=== PATIENT | male | born 1955 | race Caucasian/White ===

== ENCOUNTER 2022-04-05 13:16 | Outpatient (CLI) | payer MEDICARE, BC | END 2022-04-05 13:17 | disposition home or self-care (01) | LOC: BICMAMMO 13:16 | PROVIDERS: ATTEND Family Medicine | DX: M81.0 Age-related osteoporosis without current pathological fracture (principal); M85.851 Other specified disorders of bone density and structure, right thigh; M85.852 Other specified disorders of bone density and structure, left thigh | CPT/HCPCS: 77080 ==

== ENCOUNTER 2023-07-29 07:25 | Day surgery (SDC) | payer MEDICARE, BC ==
[2023-07-21 14:50] VITALS: BMI 31.6
[2023-07-21 15:14] LABS: Hematocrit 47.2 % (38.8-50.0); Hemoglobin 15.1 g/dL (13.5-17.5); Mean Corpuscular Hemoglobin 30.8 pg (27.0-33.0); Mean Corpuscular Volume 96.3 fl (81.2-95.1); Mean Platelet Volume 10.9 fl (7.4-10.4); Platelet Count 218 10x3/uL (150-450); White Blood Cell (WBC) Count 6.2 10x3/uL (3.5-10.5)
[2023-07-21 15:31] LABS: Prothrombin Time 10.7 sec (9.5-12.1)
[2023-07-21 15:52] LABS: Anion Gap 15 mmol/L (10-20); BUN (Urea Nitrogen) 16 mg/dL (8.4-25.7); Calc. Creatinine Clearance 96 mL/min (70-130); Calcium 8.8 mg/dL (7.8-10.44); Carbon Dioxide 24 mmol/L (23-31); Chloride 106 mmol/L (98-107); Estimated GFR 71; Glucose 83 mg/dL (80-115); Potassium 4.6 mmol/L (3.5-5.1); Sodium 140 mmol/L (136-145)
[2023-07-29] MEDS ORDERED: Heparin 25,000 units/D5W 500 ML ONE (08:03)
[2023-07-29] MEDS ORDERED: Heparin 10,000 UNITS/ 10 ML VIAL ONE (08:03)
[2023-07-29] MEDS ORDERED: fentaNYL 50 mcg/mL 1 mL Vial ONE (11:00)
[2023-07-29] MEDS ORDERED: Ondansetron PF 4 MG/2 ML Vial ONE (11:03)
[2023-07-29] MEDS ORDERED: PROPOFOL 200 MG/20 ML VIAL ONE (11:03)
[2023-07-29] MEDS ORDERED: Dexamethasone 20 MG/5 ML VIAL ONE (11:03)
[2023-07-29] MEDS ORDERED: PHENYLEPHRINE-NS 100 MCG/ML 10 ML SYRINGE ONE ×2 (11:03→14:32)
[2023-07-29] MEDS ORDERED: Lidocaine 1% PF 5 ML VIAL ONE (11:03)
[2023-07-29] MEDS ORDERED: Rocuronium Bromide 10 MG/ML (10ML VIAL) ONE (11:03)
[2023-07-29] MEDS ORDERED: SUGAMMADEX SODIUM 200 MG/2 ML VIAL ONE (12:27)
[2023-07-29] MEDS ORDERED: Isoproterenol 0.2 MG/1 ML AMP ONE (13:02)
[2023-07-29] MEDS ORDERED: Protamine Sulfate 50 MG/5 ML VIAL ONE (13:32)
[2023-07-29] MEDS ORDERED: Acetaminophen 325 MG TAB ONE (15:21)
== END 2023-07-29 18:35 | disposition home or self-care (01) ==
LOC: SDC 07:25
PROVIDERS: ATTEND Internal Medicine Cardiovascular Disease
PROC: B244ZZ4 Ultrasonography of Right Heart, Transesophageal (ICD-10-PCS; principal; 2023-07-29)
PROC: 4A023FZ Measurement of Cardiac Rhythm, Percutaneous Approach (ICD-10-PCS; 2023-07-29)
PROC: 02583ZZ Destruction of Conduction Mechanism, Percutaneous Approach (ICD-10-PCS; 2023-07-29)
DX: I48.0 Paroxysmal atrial fibrillation (principal); I48.3 Typical atrial flutter; I47.19 Other supraventricular tachycardia; I47.29 Other ventricular tachycardia; Z79.01 Long term (current) use of anticoagulants; Z86.010 Personal history of colon polyps
CPT/HCPCS: 80048; 85027; 85347 ×2; 85610; 93306; 93312; 93655; 93656; C1731; C1732; C1759; C1760; C1769; C1894 ×4; C2630; J3010; 93005; J1644; J2720